=== PATIENT | male | born 1995 | race Caucasian/White ===

== ENCOUNTER → 2021-08-23 | Outpatient (REF) ==
--- NOTE | 2021-08-23 15:54 | Diagnostic Imaging Report ---
INDICATION: Medical surveillance. Single PA view of the chest is obtained. FINDINGS: Heart size and pulmonary vascularity are within normal limits, and the lungs are clear, bilaterally. IMPRESSION: Unremarkable chest. Dictated by: Dictated on workstation # [id number]
== END | disposition home or self-care (01) ==
LOC: OCC 15:31
PROVIDERS: ATTEND Nurse Practitioner Family
DX: Z01.818 Encounter for other preprocedural examination (principal)
CPT/HCPCS: 71045